=== PATIENT | male | born 1965 | race Caucasian/White ===

== ENCOUNTER 2019-06-20 07:39 | Outpatient (CLI) | payer MEDICARE, SELFPAY ==
[2019-06-20 08:12] LABS: Blood Urea Nitrogen 18 mg/dL (9-20); Calcium 8.6 mg/dL (8.4-10.2); Carbon Dioxide 28 mmol/L (22-30); Chloride 108 mmol/L (98-107); Estimated Glomerular Filt Rate > 60; Glucose 180 mg/dL (75-110); Potassium 3.7 mmol/L (3.4-5.0); Sodium 142 mmol/L (137-145)
== END 2019-06-20 07:40 | disposition home or self-care (01) ==
LOC: ANHLAB 07:43
PROVIDERS: PCP Internal Medicine; Visit Provider Internal Medicine
DX: I11.0 Hypertensive heart disease with heart failure (principal)
CPT/HCPCS: 36415; 80048

== ENCOUNTER 2019-07-22 07:38 | Outpatient (CLI) | payer MEDICARE, SELFPAY ==
--- NOTE | ~2019-07-22 | CT_ITS ---
EXAMINATION: CT abdomen pelvis w con INDICATION: Noninfective gastroenteritis and colitis TECHNIQUE: Computed tomographic images of the abdomen and pelvis were obtained after the administrati on of 100 cc of Omnipaque 350 intravenous contrast. The dose-length product (DLP) was 1361.80 mGy-cm. Automated exposure control and iterative reconstruction technique were employed. COMPARISON: 06/07/2018 FINDINGS: The lung bases are clear. The heart size is normal. There is a small sliding hiatal hernia. The liver, spleen, pancreas, gallbladder, and left adrenal gland are normal. There is a stable 1.5 c m adenoma of the right adrenal gland. Cysts of the kidneys measure up to 3.7 cm on the right. No path ologically enlarged abdominal or pelvic lymph nodes are identified. There is no free intraperitoneal gas or evidence of bowel obstruction. Colonic diverticulosis is present without evidence of diverticu litis. Again noted are changes of anterior and posterior fusion of the lumbar spine. Chronic mild com pression fractures of L1 and L2 are unchanged. There are also unchanged fat-containing ventral hernia s at the level of the umbilicus and 7 cm above the umbilicus. IMPRESSION: 1. No CT correlate for the patient's symptoms. Reviewed, dictated and finalized at location A.
[2019-07-22 08:18] LABS: Estimated Glomerular Filt Rate 45
== END 2019-07-22 07:39 | disposition home or self-care (01) ==
PROVIDERS: PCP Internal Medicine; Visit Provider Internal Medicine
DX: K52.9 Noninfective gastroenteritis and colitis, unspecified (principal)
CPT/HCPCS: 36415; 74177; Q9967

== ENCOUNTER 2019-11-26 09:26 | Outpatient (CLI) | payer MEDICARE, SELFPAY ==
[2019-11-26 10:00] LABS: Basophils Absolute Auto 0.1 K/mm3 (0.0-0.1); Basophils Percent Auto 0.9 % (0.2-1.2); Eosinophils Absolute Auto 0.3 K/mm3 (0-0.3); Eosinophils Percent Auto 5.7 % (0-4.4); Hematocrit 41.9 % (42.0-52.0); Hemoglobin 14.6 g/dL (14.0-18.0); Immature Granulocyte Absolute 0.01 K/mm3 (0.00-0.031); Immature Granulocyte Percent A 0.2 % (0-0.5); Lymphocytes Absolute Auto 1.88 K/mm3 (0.9-3.2); Lymphocytes Percent Auto 33.7 % (18.3-44.2); Mean Corpuscular HGB Conc 34.8 g/dl (32-36); Mean Corpuscular Volume 83.3 fl (80-100); Mean Platelet Volume 10.9 fl (7.4-10.4); Monocytes Absolute Auto 0.6 K/mm3 (0.1-0.6); Monocytes Percent Auto 10.8 % (2.6-8.5); Neutrophils Absolute Auto 2.7 K/mm3 (1.3-6.7); Neutrophils Percent Auto 48.7 % (45.5-73.1); Platelet Count Result 241 k/mm3 (150-375); Red Blood Count 5.03 M/mm3 (4.6-6.20); Red Cell Distribution Width 13.1 % (11.5-14.5); White Blood Count 5.6 K/mm3 (4.5-10.0)
[2019-11-26 10:16] LABS: Alanine Aminotransferase 183 U/L (4-50); Anion Gap 7 mmol/L (8-16); Aspartate Amino Transferase 95 U/L (17-59); Blood Urea Nitrogen 22 mg/dL (9-20); Calcium 9.4 mg/dL (8.4-10.2); Carbon Dioxide 33 mmol/L (22-30); Chloride 98 mmol/L (98-107); Cholesterol 231 mg/dL (0-200); Estimated Glomerular Filt Rate > 60; Glucose 150 mg/dL (75-110); HDL Direct 32 mg/dL; Magnesium 1.3 mg/dL (1.6-2.3); Potassium 3.4 mmol/L (3.4-5.0); Sodium 138 mmol/L (137-145); Triglycerides 179 mg/dL (<150)
[2019-11-26 10:27] LABS: LDL Cholesterol Direct 158 mg/dL
[2019-11-26 10:47] LABS: Prostate Specific Antigen 2.8 ng/mL (< OR = 4.0)
[2019-11-26 10:48] LABS: Free T4 Free Thyroxine 0.94 ng/mL (0.78-2.19)
[2019-11-26 11:18] LABS: Folic Acid 8.8 ng/mL (2.76->20)
[2019-11-26 15:30] LABS: IFOB Positive Control Positive; Immunochemical Fecal Occult Bl Negative (N)
[2019-11-30 13:45] LABS: Testosterone Free 121.5 pg/mL (35.0-155.0); Testosterone Total 643 ng/dL (250-1100)
[2019-12-06 17:51] LABS: FECFAT Total Specimen Weight 24 g
== END 2019-11-26 09:27 | disposition home or self-care (01) ==
LOC: ANHLAB 09:30
PROVIDERS: PCP Internal Medicine; Visit Provider Internal Medicine
DX: R19.7 Diarrhea, unspecified (principal); E11.69 Type 2 diabetes mellitus with other specified complication; E78.5 Hyperlipidemia, unspecified; Z12.5 Encounter for screening for malignant neoplasm of prostate; E55.9 Vitamin D deficiency, unspecified
CPT/HCPCS: 36415; 80048; 80061; 82274; 82306; 82607; 82710; 82746; 83036; 83735; 84153; 84402; 84403; 84439; 84443; 84450; 84460; 84550; 85025; 89055; G0103

== ENCOUNTER 2020-11-23 09:42 | Outpatient (CLI) | payer MEDICARE, SELFPAY ==
--- NOTE | ~2020-11-23 | CT_ITS ---
EXAMINATION: CT lung screening DATE: 11/23/2020 10:02 INDICATION: Z87.891 - Personal history of nicotine dependence TECHNIQUE: Computed tomography (CT) of the chest was performed without intravenous contrast. Addition al 3D reconstructions utilizing coronal maximum intensity projection (MIP) were performed. Automated exposure control and iterative reconstruction technique were employed. The dose-length product was 27 0.01 mGy-cm. COMPARISON: 10/02/2018 and 02/05/2014 FINDINGS: No significant interval change in multiple small calcified and <3 mm noncalcified pulmonary nodules s cattered throughout both lungs is likely sequela of old granulomatous disease. No pneumonia, pulmonar y edema or pleural effusion. Pneumatocele at the anteromedial basilar left lower lobe. Heart size is normal. Atherosclerotic coronary artery calcification. No pericardial effusion. Dual lead pacemaker s een with with lead tips at the right atrial appendage and near the apex of the right ventricle. Thora cic aorta is normal in caliber. Multinodular goiter including a 4.8 cm left thyroid nodule which is u nchanged since 02/05/2014, likely benign. Calcified mediastinal lymph node consistent with old granulo matous disease. No pathologically enlarged thoracic lymphadenopathy. Small sliding-type hiatal hernia . Chronic mild anterior wedging at T6-T8 with mild thoracic spondylosis. IMPRESSION: 1. . Lung-RADS category 2: Benign appearance or behavior. Continue annual screening with noncontrast low-dose chest CT in 12 months. Reviewed, dictated and finalized at location B. IMPRESSION: 1. . Lung-RADS category 2: Benign appearance or behavior. Continue annual scree agustin with noncontrast low-dose chest CT in 12 months.
== END 2020-11-23 09:43 | disposition home or self-care (01) ==
PROVIDERS: PCP Internal Medicine; Visit Provider Nurse Practitioner Family
DX: Z12.2 Encounter for screening for malignant neoplasm of respiratory organs (principal); Z87.891 Personal history of nicotine dependence
CPT/HCPCS: 71271

== ENCOUNTER → 2020-12-10 09:02 | Outpatient (CLI) | payer MEDICARE, SELFPAY ==
--- NOTE | 2020-12-25 10:39 | WPDSLEEPSTUD ---
Sleep Study Date of Study: 12/10/20 Ordering Provider: Sammy Rawls APRN Interpreting Physician: Clary Zamarripa MD Sleep Study Type: BiPAP Titration Height: 1.73 m Weight: 117.027 kg Body Mass Index: 39.2 Neck Circumference (inches): 18.5 [place]: 4 Reason for Sleep Study Known obstructive sleep apnea on BiPAP, needs repeat titration Sleep History Liu George is a 55-year-old man with known obstructive sleep apnea syndrome who has been treated with PAP therapy, however he does not feel adequately rested. He currently is on a CPAP of 18 cm of water pressure. He is compliant with treatment but does not feel rested. He occasionally awakens from sleep feeling short of breath and occasionally awakens at night with heartburn, belching or coughing. He frequently snores loudly and he frequently has trouble sleeping with a cold. He occasionally wakes up gasping for breath at night. He does not sweat excessively at night. He rarely notices his heart beating irregularly night. Occasionally falls asleep in the day, never involuntarily and never while driving. He does not have loss of muscle tone with strong emotion. He does not have daytime difficulties due to excessive sleepiness. He does not feel paralyzed on waking or falling asleep and does not have vivid dreamlike scenes upon awakening or falling asleep. He does not feel afraid to go to sleep. He takes naps in the afternoon or evening. Sometimes a short nap is refreshing. Most of the time he feels okay on waking but he feels better in the afternoon compared to other times of day. He frequently has daytime sleepiness. Only occasionally does he awaken feeling refreshed. He occasionally has morning headaches. FORMERLY [facility] Past Medical History Medical History Diabetic gastroparesis Epiploic appendagitis Esophageal cancer Goiter, nontoxic, multinodular Hypertensive heart disease with heart failure Multinodular thyroid Post traumatic stress disorder due to war, terrorism, or hostility Surgical History Surgical History History of esophagogastroduodenoscopy (EGD) [place] Esophagus. [id number] Sánchez. Family History Family History Mother Family history of diabetes mellitus in first degree relative Diabetes mellitus Family history of malignant neoplasm of breast in first degree relative Father Family history of emphysema, Onset Age: 70 Sibling Patient's sister is in good health Other Family history of congestive heart failure Social History Social History (Updated 11/16/20 @ 15:35 by Destiny Landon, [facility]) Smoking packs per day: 1 Smoking cigarettes per day: 20.0 Years smoked: 30 Smoking pack-years: 30.00 Smoking status: Former smoker Tobacco type: cigars Smoking end date: 08/04/20 Alcohol intake: never Medications Home Medications Medication Instructions Recorded Confirmed Type sacubitril 97 mg-valsartan 103 mg 1 tablet PO BID 30 Days #60 tablet 06/24/19 11/03/20 Rx tablet amlodipine 10 mg tablet 10 mg PO DAILY #90 tablet 06/26/19 11/03/20 Rx esomeprazole magnesium 40 mg 40 mg PO BID cap 07/17/19 11/03/20 History capsule,delayed release furosemide 20 mg tablet 40 mg PO .in the morning tablet 09/10/19 11/03/20 History carvedilol 25 mg tablet 25 mg PO BID tablet 10/09/19 11/03/20 History insulin aspart U-100 100 unit/mL 30 unit SUB-Q DAILY #15 ml 10/28/19 11/03/20 Rx (3 mL) subcutaneous pen sucralfate 100 mg/mL oral 2 gm PO QID 30 Days #2400 ml 11/07/19 11/03/20 Rx suspension pen needle, diabetic 31 gauge x #90 each 11/11/19 11/03/20 Rx 3/16 metoclopramide HCl 5 mg tablet 5 mg PO ACHS 90 Days #360 tablet 12/04/19 11/03/20 Rx sildenafil 100 mg tablet 100 mg PO DAILY PRN #10 tablet 12/04/19 11/03/20 Rx celecoxib 200 mg capsule 200 mg PO DAILY #60
[2020-12-30 13:23] VITALS: BMI 39.2
== END ==
LOC: ANHCSM 09:04
PROVIDERS: PCP Internal Medicine; Visit Provider Nurse Practitioner Family
DX: G47.33 Obstructive sleep apnea (adult) (pediatric) (principal)
CPT/HCPCS: 95811

== ENCOUNTER 2021-12-22 12:33 | Outpatient (CLI) | payer MEDICARE, SELFPAY ==
--- NOTE | ~2021-12-22 | CT_ITS ---
EXAMINATION: CT lung screening DATE: 12/22/2021 13:14 INDICATION: History of tobacco dependence. Screening for lung cancer. TECHNIQUE: Computed tomography (CT) of the chest was performed without intravenous contrast. The dose -length product was 318.43 mGy-cm. Automated exposure control and iterative reconstruction technique were employed. COMPARISON: CT dated 11/23/2020 FINDINGS: Persistent thyroid goiter without significant change from prior examination. Dual-lead pace maker reidentified, lead tips in the right atrial appendage and right ventricle. Heart size normal. N o thoracic lymphadenopathy. No significant pleural or pericardial effusion. The upper abdomen is unre markable. There is fatty infiltration of the pancreas. No significant change to scattered calcified a nd noncalcified pulmonary nodules measuring 3 mm or less, likely chronic granulomatous disease. No en dobronchial lesions. No pneumothorax. No focal airspace consolidation. There is chronic wedging of mu ltiple midthoracic vertebra as well as L1. IMPRESSION: 1. Lung-RADS category 2: Benign appearance or behavior. Continue annual screening with noncontrast lo w-dose chest CT in 12 months. Reviewed, dictated and finalized at location A. IMPRESSION: 1. Lung-RADS category 2: Benign appearance or behavior. Continue annual screeni ng with noncontrast low-dose chest CT in 12 months.
== END 2021-12-22 12:34 | disposition home or self-care (01) ==
PROVIDERS: PCP Internal Medicine; Visit Provider Nurse Practitioner Family
DX: Z12.2 Encounter for screening for malignant neoplasm of respiratory organs (principal); Z87.891 Personal history of nicotine dependence
CPT/HCPCS: 71271

== ENCOUNTER 2022-03-31 13:10 | Outpatient (CLI) | payer MEDICARE, SELFPAY ==
--- NOTE | 2022-04-01 09:05 | WPDPFTINT ---
PFT Procedure Performed PFT Procedure Performed Spirometry with Pre/Post Bronchodilator Plethysmography (Lung Vol) Diffusing Cap (DLCO) Flow Vol Loop PFT Interpretation Lung volumes were measured with the body plethysmography method. Lung volumes are unremarkable. Spirometry showed diminished expiratory flow rates and a mildly diminished FEV1 to FVC ratio of 67% indicative of obstructive airway disease. Following administration of a bronchodilator there was a borderline increase in the expiratory flow rates. Lung diffusion capacity is borderline normal at 77% predicted. The flow volume loop is consistent with mild obstructive airway disease. Impression: Mild obstructive airway disease with no response to bronchodilators on this testing. Borderline normal lung diffusion capacity.
--- NOTE | 2022-04-01 09:08 | WPDSIXMINUTE ---
Six Minute Walk Procedure Procedure Performed Pulmonary Stress Test (6 min walk) Six Minute Walk Six Minute Walk: This 6 minute walk test was carried out with the patient breathing ambient air. The pre-walk oxyhemoglobin saturation was 96%. The patient walked over 350 m with no stops during testing. During the walk the oxyhemoglobin saturation remained 94% or higher. Impression: No evidence of oxyhemoglobin desaturation on this testing.
== END 2022-03-31 13:11 | disposition home or self-care (01) ==
PROVIDERS: PCP Internal Medicine; Visit Provider Nurse Practitioner Family
DX: J44.9 Chronic obstructive pulmonary disease, unspecified (principal); R06.09 Other forms of dyspnea; R94.2 Abnormal results of pulmonary function studies
CPT/HCPCS: 94060; 94618; 94726; 94729

== ENCOUNTER 2022-12-23 09:47 | Outpatient (CLI) | payer MEDICARE, SELFPAY ==
--- NOTE | ~2022-12-23 | CT_ITS ---
EXAMINATION: CT lung screening DATE: 12/23/2022 10:12 INDICATION: Personal history nicotine dependence, prior smoker with 30 pack year history TECHNIQUE: Computed tomography (CT) of the chest was performed without intravenous contrast. The dose -length product (DLP) was 269.85 mGy-cm. Automated exposure control and iterative reconstruction tech viavoo were employed. COMPARISON: 12/22/2021 FINDINGS: There is mild emphysema. Calcified pulmonary nodules and calcified left hilar lymph nodes a re consistent with old granulomatous disease. The lungs are free of acute opacities. No pleural effus ion or pneumothorax. Multinodular goiter is again noted. A dual-lead cardiac pacemaker of the left ch est wall ends with leads in expected locations. No pathologically enlarged thoracic lymph nodes are i dentified. The heart size is normal. There is calcified coronary artery atherosclerosis. There is a s table right adrenal adenoma. Again noted is mild anterior wedging of multiple thoracic vertebral bodi es. IMPRESSION: 1. Lung-RADS category 1: Negative. Continue annual screening with noncontrast low-dose chest CT in 12 months. Reviewed, dictated and finalized at location B. IMPRESSION: 1. Lung-RADS category 1: Negative. Continue annual screening with noncontrast l ow-dose chest CT in 12 months.
== END 2022-12-23 09:48 | disposition home or self-care (01) ==
PROVIDERS: PCP Internal Medicine; Visit Provider Physician Assistant
DX: Z12.2 Encounter for screening for malignant neoplasm of respiratory organs (principal); Z87.891 Personal history of nicotine dependence
CPT/HCPCS: 71271

== ENCOUNTER 2023-12-26 10:11 | Outpatient (CLI) | payer MEDICARE, OTHER, SELFPAY ==
--- NOTE | ~2023-12-26 | CT_ITS ---
CT Scan of the Chest without Contrast: Clinical Indication: Lung cancer screening, nicotine dependence Technique: Contiguous sections were acquired throughout the chest without intravenous contrast. Dose reduction technique was used on this scan by utilizing automated exposure control and iterative recon struction technique. The dose-length product (DLP) was 311.99 mGy-cm. COMPARISON: 12/23/2022 Findings: Stable large thyroid gland with probable nodules. There is no evidence of any significant mediastinal, hilar or axillary lymphadenopathy. Mild coronary artery calcifications are present. There is no evidence of pleural or pericardial effusion. . There are mild patchy groundglass opacities in the left lower lobe, most compatible with pneumonia. Note suspicious, discrete pulmonary nodule evident. Images through the upper abdomen reveal stable small right adrenal nodule. Stable chronic compression deformity of L1. Impression: Lung RADS 2-S: Benign appearance. 12 month follow-up screening CT advised. Left lower lobe pneumonia. Reviewed, dictated and finalized at [facility]. Impression: Lung RADS 2-S: Benign appearance. 12 month follow-up screening CT advised. Left lower lobe pneumonia.
== END 2023-12-26 10:12 | disposition home or self-care (01) ==
PROVIDERS: PCP Internal Medicine; Visit Provider Physician Assistant
DX: Z12.2 Encounter for screening for malignant neoplasm of respiratory organs (principal); Z87.891 Personal history of nicotine dependence; J18.9 Pneumonia, unspecified organism
CPT/HCPCS: 71271

== ENCOUNTER 2025-01-09 10:39 | Outpatient (CLI) | payer MEDICARE, OTHER, SELFPAY ==
--- NOTE | ~2025-01-09 | CT_ITS ---
EXAMINATION:CT lung screening DATE: 01/09/2025 11:00 INDICATION: Personal history of nicotine dependence. TECHNIQUE: Computed tomography (CT) of the chest was performed without intravenous contrast. Automated exposure control and iterative reconstruction technique were employed. The dose-length product (DLP) was 296.21 mGy-cm. COMPARISON: Chest CT 12/26/2023 FINDINGS: There is mild emphysema. Calcified bilateral lung nodules and calcified left hilar lymph nodes are consistent with old granulomatous disease. There are a few scattered nodules in the lungs measuring up to 2 mm. No pleural effusion. The thyroid is enlarged. The heart size is normal. There are coronary artery calcifications. No pericardial effusion. There is a left chest wall pacer with leads in the right atrium and right ventricle. There are cysts in the kidneys measuring up to 2.3 cm on the left. There is diffuse hepatic steatosis. Again seen is a 15 mm mass in right adrenal gland, likely an adenoma. Calcifications in the spleen are consistent with old granulomatous disease. There is mild chronic anterior wedging of multiple vertebral bodies. There is mild thoracic spondylosis. IMPRESSION: 1. Lung-RADS category 2: Benign appearance or behavior. Continue annual screening with noncontrast low-dose chest CT in 12 months. Reviewed, dictated and finalized at location E. IMPRESSION: 1. Lung-RADS category 2: Benign appearance or behavior. Continue annual screeni ng with noncontrast low-dose chest CT in 12 months.
== END 2025-01-09 10:40 | disposition home or self-care (01) ==
PROVIDERS: PCP Internal Medicine; Visit Provider Nurse Practitioner Family
DX: Z12.2 Encounter for screening for malignant neoplasm of respiratory organs (principal); Z87.891 Personal history of nicotine dependence
CPT/HCPCS: 71271